=== PATIENT | female | born 1980 | race Hispanic/Latino ===

== ENCOUNTER 2018-09-14 19:21 | Day surgery (SDC) | payer SELFPAY ==
[2018-09-14 21:11] LABS: #Basophils 0.1 thou/uL (0.0-0.2); #Lymphocytes 1.8 thou/uL (1.20-3.40); #Monocytes 0.5 thou/uL (0.11-0.59); %Basophils 0.7 % (0.0-1.0); %Eosinophils 0.2 % (0.0-10.0); %Lymphocytes 21.8 % (21.0-51.0); %Monocytes 5.4 % (0.0-10.0); Hemoglobin 10.7 g/dL (12.0-16.0); Mean Corpuscular HGB CONC 34.4 g/dL (32.0-36.0); Mean Corpuscular Hemoglobin 30.6 pg (27.0-31.0); Platelet Count 308 thou/uL (130-400); RBC Distribution Width 10.8 % (11.5-14.5); Red Blood Cell (RBC) Count 3.49 mill/uL (4.20-5.40); White Blood Cell (WBC) Count 8.3 thou/uL (4.8-10.8)
--- NOTE | 2018-09-14 22:14 | ULT ---
Pelvic ultrasound. HISTORY: Vaginal bleeding. Multiple longitudinal and transverse images of the pelvis obtained using multi hertz curvilinear hodgson sabdominal as well as multi hertz endovaginal transducers. Real-time, color flow and spectral waveform Doppler analysis used to evaluate the pelvis. The uterus measures 8.5 x 4.9 x 5.2 cm. The endometrium is moderately thickened measuring up to 8 mm. There appears to be a area of hypoechogenicity within the lower aspect of the uterine canal possibly representing fluid or gestational sac. No evidence of a pole seen. No evidence of cardiac activity seen. Both ovaries visualized with good blood flow. Right ovary contains a cyst measuring 2.2 x 1.9 cm. The left ovary is unremarkable. No evidence of free pelvic fluid seen. IMPRESSION: No evidence of viable intrauterine seen.
[2018-09-14 22:38] LABS: Albumin 4.3 g/dL (3.5-5.0)
[2018-09-14 22:39] LABS: Calcium 8.9 mg/dL (7.8-10.44); Chloride 105 mmol/L (98-107); Potassium 4.4 mmol/L (3.5-5.1); Sodium 137 mmol/L (136-145)
[2018-09-14 22:40] LABS: Globulin 2.8 g/dL (2.4-3.5); Glucose 115 mg/dL (70-105); Protein, Total 7.1 g/dL (6.0-8.3)
[2018-09-14 22:42] LABS: Anion Gap 16 mmol/L (10-20); Bilirubin, Total 0.3 mg/dL (0.2-1.2); Carbon Dioxide 20 mmol/L (22-29)
[2018-09-14 22:43] LABS: Alkaline Phosphatase 57 U/L (40-150)
[2018-09-14 22:44] LABS: BUN (Urea Nitrogen) 18 mg/dL (7.0-18.7); Calc. Creatinine Clearance 0 mL/min (70-130); Estimated GFR-MDRD 89
[2018-09-14 22:45] LABS: AST (SGOT) 25 U/L (5-34)
[2018-09-14 22:46] LABS: ALT (SGPT) 21 U/L (8-55)
[2018-09-15] MEDS ORDERED: Fentanyl 100 MCG/2 ML VIAL ONE (00:34)
[2018-09-15] MEDS ORDERED: Oxytocin 10 UNITS/ML VIAL ONE (01:08)
--- NOTE | 2018-09-15 04:22 | OP ---
DATE OF PROCEDURE: 09/15/2018 SURGEON: Heladio Roberts MD RESEARCH SPECIALIST SURGEON: Balbina Ulloa MD. PROCEDURE: Suction curettage of the uterus. PREOPERATIVE DIAGNOSIS: Suspected incomplete . POSTOPERATIVE DIAGNOSIS: Suspected incomplete . ESTIMATED BLOOD LOSS: Less than 50 mL. COMPLICATIONS: None. BRIEF PATIENT DESCRIPTION: Ms. Kamila Fine is a 37-year-old , G6, P4, who reports having had a miscarriage last week and was seen by Dr. Vasquez. She was given misoprostol and began to bleed heavily. She was apparently seen in the ER in [place] and was sent home and returns tonight with even heavier bleeding. PAST OBSTETRICAL HISTORY: Includes four uncomplicated vaginal deliveries at term. PAST MEDICAL HISTORY: Unremarkable. PAST SURGICAL HISTORY: Unremarkable. In the ER, her vital signs are stable. She is afebrile, but there is a [id number] amount of vaginal bleeding. Ultrasound demonstrated what looked like tissue in the lower uterine segment. Decision was made to proceed to the operating room for D and C. Informed consent was obtained. TECHNIQUE IN DETAIL: After good general endotracheal anesthesia was achieved, the patient was prepped and draped in the usual sterile fashion in the dorsal lithotomy position. A weighted speculum was inserted in the vagina after the bladder had been drained of clear urine. The anterior aspect of the cervix was grasped with a ring forceps. There was what appeared to be products of conception protruding from the cervix and this was removed. On bimanual, the uterus was eight weeks in size and an 8 mm curved Vacurette was placed. Suction curettage was performed. Minimal residual tissue was obtained. Sharp curettage was then carried out and there were no further fragments noted. All instruments were then removed from the vagina. Instrument and sponge counts were correct. The patient tolerated the procedure well and was taken to the recovery room in good condition. Job ID: [id number] [facility]
== END 2018-09-15 ==
LOC: ERS 19:21 → SDC/OP 09-15 00:47
PROVIDERS: ATTEND Obstetrics & Gynecology
PROC: 10D17ZZ Extraction of Products of Conception, Retained, Via Natural or Artificial Opening (ICD-10-PCS; principal; 2018-09-15)
DX: O03.1 Delayed or excessive hemorrhage following incomplete spontaneous abortion (principal)
CPT/HCPCS: 36415; 76856; 80053; 84702; 85025; 86900; 86901; 88305; 93976; 96360; 96361; J2590; J3010